=== PATIENT | female | born 1980 | race Caucasian/White ===

== ENCOUNTER 2020-07-10 05:08 | Inpatient (IN) | payer OTHER, SELFPAY ==
[2020-07-10] VITALS (68 sets, daily range): BP systolic 68–115; BP diastolic 45–83; PULSE 58–180; RESP 17; TEMP 36.7–36.9; O2SAT 94–99
--- NOTE | 2020-07-10 05:34 | LDADM ---
This patient, Coral Lord, was admitted to Labor/Delivery/Recovery 105 on 07/10/20 at 05:08. Plans for labor, pain management and were discussed with patient. Patient/family oriented to hospital policies and general routines including ID bracelet, bed and alarms, visiting hours, pain management, procedures, bathroom and other care routines, personal items, smoking policy, room service/diet and guest tray routines, security routines, and visiting hours. Patient/Family are encouraged to report perceived risks to care and to ask questions if they do not understand what they are told or what they should do. See [facility]BIX for further documentation.
[2020-07-10 05:50] LABS: Glucose Point of Care 91 (65-105)
[2020-07-10 07:11] LABS: Basophils Percent Auto 0.4 % (0.2-1.2); Eosinophils Absolute Auto 0.1 K/mm3 (0-0.3); Eosinophils Percent Auto 1.3 % (0-4.4); Hematocrit 33.5 % (37.0-47.0); Hemoglobin 11.4 g/dL (12.0-15.0); Immature Granulocyte Absolute 0.03 K/mm3 (0.00-0.031); Immature Granulocyte Percent A 0.4 % (0-0.5); Lymphocytes Absolute Auto 1.78 K/mm3 (0.9-3.2); Mean Corpuscular Hemoglobin 28.6 pg (26-34); Mean Corpuscular Volume 84.2 fl (80-100); Mean Platelet Volume 9.5 fl (7.4-10.4); Monocytes Absolute Auto 0.7 K/mm3 (0.1-0.6); Monocytes Percent Auto 8.3 % (2.6-8.5); Neutrophils Absolute Auto 5.8 K/mm3 (1.3-6.7); Neutrophils Percent Auto 68.6 % (45.5-73.1); Platelet Count Result 246 k/mm3 (150-375); Red Blood Count 3.98 M/mm3 (4.2-5.4); Red Cell Distribution Width 14.5 % (11.5-14.5); White Blood Count 8.5 K/mm3 (4.5-10.0)
[2020-07-10 09:26] LABS: Rapid Plasma Reagin Non-Reactive (NonReactive)
[2020-07-10 10:28] LABS: Glucose Point of Care 73 (65-105)
--- NOTE | 2020-07-10 10:58 | WPDOBADMIT ---
Obstetrics - Admit Note Admission Note: record reviewed. No pertinent additions to the history and/or any subsequent changes in the physical findings that are not consistent with the expected course of the were found. Additions to the history and/or subsequent changes in the physical findings follow. None.Here for MIL. Cervix 4/-2 AROM with clear fluid, FHTs reactive
--- NOTE | 2020-07-10 11:37 | WPDANESEPPF ---
Anes - Initial Pre Proc Eval Procedure: labor epidural Date/Time: 07/10/20 11:37 Surgeon: Shira Sawant MD Pre Op Diagnosis: labor pain Pre Op Diagnosis: IOL Patient Data Age: 39 Gender: F Height: 1.73 m Weight: Last Vital Signs Temp 36.7 C 07/10/20 10:43 Pulse 91 07/10/20 11:36 BP 79/45 L 07/10/20 11:36 Pulse Ox 96 07/10/20 11:33 Allergies Allergy/AdvReac Type Severity Reaction Status Date / Time No Known Allergies Allergy Verified 06/18/20 13:38 Home Medications Medication Instructions Recorded Confirmed Type prenat.vits,sulma,met-tjse-ovmud 1 tablet PO DAILY 06/18/20 06/18/20 History [ #2] Laboratory Tests 07/10/20 07/10/20 07/10/20 05:36 06:33 06:33 WBC 8.5 K/mm3 K/mm3 (4.5-10.0) RBC 3.98 M/mm3 L M/mm3 (4.2-5.4) Hgb 11.4 g/dL L g/dL (12.0-15.0) Hct 33.5 % L % (37.0-47.0) MCV 84.2 fl fl (80-100) MCH 28.6 pg pg (26-34) MCHC 34.0 g/dl g/dl (32-36) RDW 14.5 % % (11.5-14.5) Plt Count 246 k/mm3 k/mm3 (150-375) MPV 9.5 fl fl (7.4-10.4) Immature Gran % (Auto) 0.4 % % (0-0.5) Neut % (Auto) 68.6 % % (45.5-73.1) Lymph % (Auto) 21.0 % % (18.3-44.2) [place] % (Auto) 8.3 % % (2.6-8.5) Eos % (Auto) 1.3 % % (0-4.4) Baso % (Auto) 0.4 % % (0.2-1.2) Lymph # (Auto) 1.78 K/mm3 K/mm3 (0.9-3.2) [place] # (Auto) 0.7 K/mm3 H K/mm3 (0.1-0.6) Eos # (Auto) 0.1 K/mm3 K/mm3 (0-0.3) Baso # (Auto) 0.0 K/mm3 K/mm3 (0.0-0.1) Abs Immat Gran (auto) 0.03 K/mm3 K/mm3 (0.00-0.031) Absolute Neuts (auto) 5.8 K/mm3 K/mm3 (1.3-6.7) Absolute Nucleated RBC 0.0 K/mm3 K/mm3 (0.0-0.012) Nucleated RBC % 0.0 % % (0.0-0.2) POC Capillary Glucose 91 mg/dl mg/dl (65-105) RPR Non-reactive (NonReactive) Blood Type Antibody Screen 07/10/20 07/10/20 06:33 10:23 WBC RBC Hgb Hct MCV MCH MCHC RDW Plt Count MPV Immature Gran % (Auto) Neut % (Auto) Lymph % (Auto) [place] % (Auto) Eos % (Auto) Baso % (Auto) Lymph # (Auto) [place] # (Auto) Eos # (Auto) Baso # (Auto) Abs Immat Gran (auto) Absolute Neuts (auto) Absolute Nucleated RBC Nucleated RBC % POC Capillary Glucose 73 mg/dl mg/dl (65-105) RPR Blood Type O Positive Antibody Screen Negative Patient hx anesthesia problems: none Family hx anesthesia problems: none PMFSH Past Medical History Medical History (Updated 07/10/20 @ 11:37 by Remington Kirby DO) GDM (gestational diabetes mellitus) Family History Family History (Updated 06/18/20 @ 13:39 by Rose Jackson RN) Other Unknown family medical history Social History Social History Smoking status: Never smoker Substance use: never Spiritual care concerns: No Anes - Eval Final PreProcedure Day of Procedure 07/10/20 11:37 Patient weight: obese ASA classification: III Anesthesia type and monitoring: regional epidural Informed Consent: The patient's anesthetic plan and its attendant risks and benefits were discussed with the patient/family/POA. Questions were solicited and answers provided to the satisfaction of the patient/family/POA.
--- NOTE | 2020-07-10 13:25 | PM.OBPRVD ---
OB - Delivery Note Procedure Delivery date: 07/10/20 Procedure: events: Gestational Diabetes (GDMA2 vs B) and Labor Induction Intrapartal events: None Induction method: AROM and per pitocin protocol Delivery monitor: external FHT and external uterine Route of delivery: Laceration Description: None Specimen: Yes (placenta) Quantitative Blood Loss (ml): 120 Anesthesia type: Epidural Disposition: floor [place] Baby Date of : 07/10/20 Weeks of gestation at delivery: 39 gender: Female presentation: vertex position: Left Occiput Anterior Placenta delivery description: Spontaneous cord vessel description: 3 Vessels score one minute: 9 score five minutes: 9
--- NOTE | 2020-07-10 13:26 | PM.OBDSVD ---
DS: Admitting Diagnosis Admitting Diagnosis Admitting Diagnosis: IUP 39 wks; GDMA2 DS: Discharge Diagnosis Discharge Diagnosis (1) 39 weeks gestation of : Code(s): Z3A.39 - 39 weeks gestation of Status: Acute (2) (normal spontaneous vaginal delivery): Code(s): O80 - Encounter for full-term uncomplicated delivery Status: Acute OB - DS: Summary OB Procedures : NST and Ultrasound OB Procedures Intrapartum: Spontaneous Vag Delivery OB Procedures: : None Peripartum Data Delivery Method: Natural Vaginal Laceration Description: None complications: none Status at Discharge Functional status at discharge: independent ambulation Overall status at discharge: patient is progressing back to baseline Time Spent with Patient Time attestation: Total time spent providing and/or coordinating discharge services: DS: Data Data Completed and Pending Labs on day of discharge: Labs from last 24 hours 07/10/20 07/10/20 07/10/20 10:23 06:33 06:33 WBC RBC Hgb Hct MCV MCH MCHC RDW Plt Count MPV Immature Gran % (Auto) Neut % (Auto) Lymph % (Auto) [place] % (Auto) Eos % (Auto) Baso % (Auto) Lymph # (Auto) [place] # (Auto) Eos # (Auto) Baso # (Auto) Abs Immat Gran (auto) Absolute Neuts (auto) Absolute Nucleated RBC Nucleated RBC % POC Capillary Glucose 73 RPR Non-reactive Blood Type O Positive Antibody Screen Negative 07/10/20 07/10/20 06:33 05:36 WBC 8.5 RBC 3.98 L Hgb 11.4 L Hct 33.5 L MCV 84.2 MCH 28.6 MCHC 34.0 RDW 14.5 Plt Count 246 MPV 9.5 Immature Gran % (Auto) 0.4 Neut % (Auto) 68.6 Lymph % (Auto) 21.0 [place] % (Auto) 8.3 Eos % (Auto) 1.3 Baso % (Auto) 0.4 Lymph # (Auto) 1.78 [place] # (Auto) 0.7 H Eos # (Auto) 0.1 Baso # (Auto) 0.0 Abs Immat Gran (auto) 0.03 Absolute Neuts (auto) 5.8 Absolute Nucleated RBC 0.0 Nucleated RBC % 0.0 POC Capillary Glucose 91 RPR Blood Type Antibody Screen Discharge Plan Discharge Attending physician on discharge: Shira Sawant Consulting providers: Remington Kirby Discharging Clinician: Saul Simon Anticipated Discharge Date/Time: 07/11/20 13:28 Patient Disposition: Home, Self-Care Activity: may shower and pelvic rest Diet: regular Discharge Instructions: Education: Mom and Baby Guide and discharge video and Preeclampsia Handout Given to: Mother Follow-Up: Call your delivering provider's office for an appointment to be seen in: 6 Weeks Mom and baby should come to the [facility] for the follow-up appointment. Appointment Date/Time: July 12, 2020 at 10:00 am What to expect at your follow-up visit: Physical Assessment Call [phone] if you are unable to keep your appointment time. BREAST CARE: * Wear a snug supportive bra. * For engorgement discomfort: Breast Feeding: * Apply warm moist washcloths * Express milk as needed to relieve engorgement * Wear loose clothing * For sore nipples: * Identify correct latch-on * Apply warm moist washcloths before and after nursing * Air dry nipples after nursing * May apply Lansinoh cream to nipples EPISIOTOMY/PERINEAL CARE: * Until bleeding stops, use your jun bottle after urinating * Change your pad frequently throughout the day * You may take sitz baths several times a day (fill your bathtub with warm water and soak for 20 minutes.) Do NOT bathe in the water * No tub baths until seen by your physician - You may shower ACTIVITY: * Rest as much as possible. * Do not exercise or lift anything heavier than your baby (such as laundry or other children.) * Avoid stairs or driving as much as possible. * Do not put anything into the vagina. No douching, tampon
[2020-07-10 15:03] LABS: Glucose Point of Care 71 (65-105)
[2020-07-10 16:48] LABS: Glucose Point of Care 250 (65-105)
[2020-07-10] MEDS: BENZOCAINE 20% AER SPR (*SP) 56 GM CAN 1 SPRAY TOPICAL (17:00)
[2020-07-10 20:38] LABS: Glucose Point of Care 154 (65-105)
[2020-07-11] MEDS: ACETAMINOPHEN 325 MG TABLET 650 MG PO (04:41)
[2020-07-11 06:09] LABS: Hematocrit 34.1 % (37.0-47.0); Hemoglobin 11.3 g/dL (12.0-15.0)
--- NOTE | 2020-07-11 07:30 | PC.NURSE ---
Patient instructed on viewing the discharge video Mother & Baby Care, The First Two Weeks . Patient was given the opportunity and encouraged to ask questions. Patient verbalized understanding of information shared and has been given the mother/baby guide for home reference.
[2020-07-11] MEDS: MULTIVIT/MIN/PREN/FOL AC/IRON TABLET 1 TAB PO (07:31)
[2020-07-11 07:50] VITALS: BP 109/65; PULSE 85; RESP 18; TEMP 36.6
[2020-07-11 08:57] LABS: Glucose Point of Care 148 (65-105)
--- NOTE | 2020-07-11 11:36 | WPDANLDPN2 ---
Anes-Prog Note L&D Date/Time: 07/11/20 11:36 Comfortable throughout: labor and delivery Neuraxial method: epidural Epidural/Spinal procedure site: clean & non-tender Neuro status: Neuro function grossly intact. Cardiovascular status: normal Respiratory status: normal Airway patency: baseline Mental status: baseline Post-Op hydration status: normal Vital Signs: Last Vital Signs Temp 36.6 C 07/11/20 07:50 Pulse 85 07/11/20 07:50 Resp 18 07/11/20 07:50 BP 109/65 07/11/20 07:50 Pulse Ox 96 07/10/20 12:43 Pain score (VAS): 0 I/O: Intake & Output 07/10/20 07/11/20 07/11/20 23:59 07:59 15:59 Intake Total 240 Output Total 450 Balance -450 240 Post-procedural complaints: none Patient feedback: Patient satisfied with anesthetic care.
--- NOTE | 2020-07-11 15:11 | PC.NURSE ---
1300 note; nurse worked with mother and baby earlier this a.m.; Mother is a Para 4 and reports strong breast feeding history. This baby has been sleepy with feedings. 0915 nurse present; baby sleepy, also tongue sucking; she would not open her mouth wide to latch for feeding. allowed to rest 1010 nurse present; baby still sleepy, tongue sucking, and would not latch for effective breast feeding; nipple shield used; mother shown how to correctly place nipple shield; baby did latch with shield, but had difficutly staying latched. some bursts of sucking and some disorganized sucking. mother reports this is how baby's feedings have been. Nurse explained to parents that it appeared that baby was nursing effectively; nurse suggested pumping which mother agreed and possible supplementation with formula, which mother and particularly FOB both seemed resistant to, saying baby would do better once they were home. Nurse reviewed positioning, alignment, use of c-hold and nose to nipple latch on technique in cross cradle and football position and q2-3h feedings; reviewed feeding log, and mother has mother-baby guide for home reference, and LC contact information. Mother seemed attentive. Nurse left and returned to help mother pump but mother had infant back to breast, then later reported several cluster feeds of about 5 minutes each. mother reports using nipple shield, and states she is seeing colostrum in the shield. Nurse left again and returned to help mother pump; mother reported she pumped and it hurt so she stopped. Mother had started with 24mm flanges; nurse suggested going to27mm flanges which mother agreed to and she reported comfortable pumping. Nurse suggested that mother continue pumping after each breast feeding and as her milk volume increases, that breast milk should be given to baby as supplement; mother agreed. Mother voiced understanding, but again both parents seem resistance to baby being supplemented. Nurse reinforced importance of baby being seen in f/u tomorrow, and then at one week of age with her [employer].
--- NOTE | 2020-07-12 07:06 | P.PNOB_ITS ---
OB - PN: Subj Subjective Date/time seen: 07/11/20 07:06 doing well no complaints desires home today OB - PN: Obj Data Labs CBC & Chem 7: 07/11/20 04:39 Labs: Laboratory Results - last 24 hr 07/11/20 08:55 POC Capillary Glucose 148 H OB - PN A/P Assessment and Plan (1) (normal spontaneous vaginal delivery): Code(s): O80 - Encounter for full-term uncomplicated delivery Status: Acute Assessment and Plan: desires home d/c. f/u in 6 weeks. Time Spent With Patient Time: Total time spent is greater than 50% in coordination of care (as documented) at patient's floor/unit and/or counseling patient: Exam 2 GI: Other: ff below umbilicus
[2020-07-12 10:35] VITALS: BP 106/69; PULSE 82; RESP 16; TEMP 36.6; O2SAT 99
== END 2020-07-11 14:35 | disposition home or self-care (01) | DRG 560 ==
LOC: ANHLDR 07-12 13:25 → ANHOB2 07-12 13:25
PROVIDERS: Obstetrics & Gynecology Gynecology; Admitting Provider Obstetrics & Gynecology; Visit Provider Obstetrics & Gynecology
DX: O24.429 Gestational diabetes mellitus in childbirth, unspecified control (principal); Z37.0 Single live birth; Z3A.39 39 weeks gestation of pregnancy
CPT/HCPCS: 36415; 85014; 85018; 85025; 86592; 86850; 86900; 86901; 88307; A9270; J2795